=== PATIENT | male | born 1990 | race Caucasian/White ===

== ENCOUNTER 2019-11-23 14:43 | Day surgery (SDC) | payer OTHER, SELFPAY ==
[2019-11-23] VITALS (8 sets, daily range): BP systolic 119–155; BP diastolic 65–100; PULSE 74–91; RESP 10–20; TEMP 36.4–36.8; O2SAT 94–99
[2019-11-23] MEDS: tetanus-dipt-pertussis 0.5 mL SDV IM (15:40)
[2019-11-23] MEDS: ceFAZolin 1,000 MG in sodium chloride 0.9% (plus) 50 ML 100 MG IV (15:44)
--- NOTE | 2019-11-23 15:58 | ED_ITS ---
HPI - Wound/Laceration General: Stated Complaint: chainsaw cut Time Seen by Provider: 11/23/19 15:11 History of Present Illness: HPI narrative: Patient was working outdoors with a chain saw when the chain made contact with his lower abdomen. Patient has a somewhat macerated 25 cm partial-thickness wound to the lower left abdomen. Review of Systems General: Reports: 10 or more systems reviewed and unremarkable except in HPI and below Physical Exam Narrative: EXAM NARRATIVE: 25 cm laceration to the lower left abdomen with macerated devitalized tissue present MDM - Wound/Laceration MDM Narrative: Medical decision making narrative: I spoke to Dr. Garcia by phone. Dr. Jones will come to the ER and evaluate the patient for possible surgical debridement and repair of the injury. Discharge Plan Discharge Patient Disposition: Admitted As Inpatient Clinical Impression: Laceration, Contact with chainsaw as cause of accidental injury Condition: Stable Coding Level of Care Code ED Business Intelligence Engineer for [facility]
--- NOTE | 2019-11-23 17:35 | PM.HP ---
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 They were clearing some limbs from the area of a power line. He was on a ladder and lost his balance somewhat and leaned forward while another worker was using a chain saw underneath him. He sustained a chainsaw injury to the left lower quadrant of the abdominal wall. Review of Systems General: Reports: 10 or more systems reviewed and unremarkable except in HPI and below Medications/Allergies Home Medications Medication Instructions Recorded Confirmed Last Taken Type No Known Home Medications 11/23/19 11/23/19 Unknown History Allergies Allergy/AdvReac Type Severity Reaction Status Date / Time No Known Allergies Allergy Verified 11/23/19 17:33 PFSH Acute PFSH: Medical History (Updated 11/23/19 @ 17:37 by Marcio Barnett MD) No significant past medical history Surgical History (Updated 11/23/19 @ 17:37 by Marcio Barnett MD) History of arthroscopy of right knee Social History (Updated 11/23/19 @ 17:38 by Marcio Barnett MD) Smoking and tobacco status: never smoked Alcohol intake: current Alcohol use comment: Occasional Physical Exam Narrative: EXAM NARRATIVE: The patient was encountered in the emergency room. He is in no distress. The pupils are equal. No carotid bruits are heard. The lungs are clear anteriorly. The heart is regular. The abdomen is moderately obese but is soft. I removed the dressing from the left lower quadrant of the abdomen. He has a transverse incised/lacerated wound involving the abdominal wall into the subcutaneous tissue measuring perhaps 25 cm in greatest length. There is some partially disconnected dermis and epidermis in the center of the wound. There is no significant ongoing bleeding. The extremities reveal no edema. Neurologically the patient appears to be grossly intact. A&P Assessment and plan (1) Laceration: I told the patient this wound would likely heal by itself, but the cosmetic result is not going to be optimal, and I cannot guarantee that the tissue that is somewhat disconnected in the center will not necrose and turn into an eschar or possibly even lead to an infection. I told him I think the best idea would be to go to the operating room today and basically excise/debride/irrigate the wound with plans to reclose it. The procedure details were discussed with him. He would like to proceed with the surgery. Status: Acute (2) Contact with chainsaw as cause of accidental injury: Status: Acute Attestations Medical Necessity Statement*: The patient will be able to be discharged safely following this procedure since it is very superficial. He will be left in outpatient status for now. Coding Level of Care Code Acute Perinatal Breastfeeding Assistant for [facility] Jose Diagnoses Laceration Contact with DigePrintaw as cause of accidental injury W29.3XXA
--- NOTE | 2019-11-23 17:46 | ANES.PREANE2 ---
Pre-Anesthetic Assessment Pre-Anesthetic Assessment: Last intake: Intake Last Liquid Date 11/23/19 Last Liquid Time 13:00 Last Solid Date 11/23/19 Last Solid Time 11:00 Social: Social History: Alcohol (occ) and No tobacco Exam: Pre-Anes Outpt Exam: alert, oriented x 3, clear to auscultation bilaterally and regular rate & rhythm Airway: Submandibular: WNL Cervical ROM: WNL MP: 1 Dentition: Other (teeth ok) History/ROS: No significant history except as noted Pulmonary: Pulmonary: None reported CV/HEM: CV/HEM: None reported : : None reported Hepatic: Hepatic: None reported GI: GI: None reported Metabolic: Metabolic: None reported Musc/skel: Musc/skel: None reported Neuropsych: Neuropsych: None reported Anesthetic Plan: ASA status: 2E Anesthesia: Anesthesia Evaluation and General Risk of > 500 ml blood loss (7ml/kg in children): No Meds/Allergies Current Medications: Current Medications Generic Name Dose Route Start Last Admin Trade Name Freq PRN Reason Stop Dose Admin Cefazolin Sodium 1 ,000 mg/ 50 mls @ 100 mls/ hr 11/23/19 15:45 11/23/19 15:44 Sodium Chloride IV 100 mls/hr Q8H REVA Administration Protocol PFSH Anesthesia PFSH: Medical History No significant past medical history Surgical History History of arthroscopy of right knee Social History Smoking and tobacco status: never smoked Alcohol intake: current Alcohol use comment: Occasional Data Anesthesia Cardiac Studies: No Data to Display
--- NOTE | 2019-11-23 18:51 | PM.OP ---
Operative Report Date of procedure: November 23, 2019 Pre-op Diagnosis: Chainsaw injury to left lower quadrant of abdominal wall into the subcutaneous tissue. Post-op diagnosis: same Procedure Done: Excision/debridement/irrigation of abdominal wall wound (skin and subcutaneous tissue) with layered closure of 25+ cm incision. Pathology: none sent Surgeon: Marcio Barnett Anesthesia: General Estimated blood loss (mL): 15 Complications: None. Condition: stable Disposition: PACU Procedure: The patient was brought to the operating room and was placed in a supine position on the operating room table. General endotracheal anesthesia was induced. The abdomen was prepped and draped in a sterile fashion. The patient had a transverse but somewhat tangential laceration/incised wound in the left lower quadrant of the abdomen with some denuded epithelium and dermis in the center. There were a few punctate wounds at the lateral aspect near the flank. This entire area was elliptically excised using a 10 blade at the skin edges. Cautery was then used to remove some of the subcutaneous fat connected to the overlying injured skin. The wound was then extensively irrigated using the Pulsavac lavage irrigation system. Cautery was used to control some small bleeding points throughout the procedure. The remaining incision measured just over 25 cm in length. This was closed using a layer of inverted interrupted sutures of 3-0 Vicryl at the dermis. The skin was approximated using skin sukhjinder. Some triple antibiotic ointment was placed over the wound and a sterile nonstick bandage was applied. The patient was taken to the recovery area in stable condition postoperatively.
--- NOTE | 2019-11-23 19:02 | ANE.PACU2 ---
Inpatient post-anesthesia follow up: Airway intact: Yes Vital signs: Temperature Pulse Rate 80 Respiratory Rate 20 Blood Pressure 155/100 Pulse Oximetry 98 Oxygen Delivery Me thod Oxygen Flow Rate Fraction of Inspir ed Oxygen Hydration adequate: No Nausea and vomiting: No (0/10) Mental status: Baseline
--- NOTE | 2019-11-23 19:06 | SUR.PHASEI ---
PT NOW ON RA PT DENIES PAIN AND NAUSEA, PT ALERT VSS.
[2019-11-23] MEDS: HYDROcodone-acetaminophen 5-325 mg Tablet 1 TAB PO (19:40)
--- NOTE | 2019-11-23 19:51 | SUR.PHASEII ---
at [facility] filling script called and updated pt stable and asking about his glasses and clothes, to call when at ops doors.
--- NOTE | 2019-11-23 20:04 | SUR.PHASEII ---
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
== END 2019-11-23 20:25 | disposition home or self-care (01) ==
PROVIDERS: Emergency Provider Family Medicine; Visit Provider Surgery
PROC: (CPT 12036; principal; 2019-11-23 17:45)
PROC: (CPT 12036; 2019-11-23 17:45)
DX: S31.114A Laceration without foreign body of abdominal wall, left lower quadrant without penetration into peritoneal cavity, initial encounter (principal); W29.3XXA Contact with powered garden and outdoor hand tools and machinery, initial encounter; Y99.0 Civilian activity done for income or pay; Z23 Encounter for immunization
CPT/HCPCS: 12036; 12345; 90471; 90715; 99281; J0330; J0690; J1100; J1885; J2001; J2405; J2704; J2710; J3010; J3490